=== PATIENT | female | born 1950 | race Caucasian/White ===

== ENCOUNTER 2018-08-26 11:35 | Inpatient (IN) | payer MEDICARE, OTHER ==
[~2018-08-26] VITALS: Ht 165.1 cm; Wt 88.3 kg
[~2018-08-26 11:35] MED LIST: ACET325T14; AMIT50TA PO; ASPI100P; CHRO1TAB6; CYCLOBENZAPR; DOCU50CA; EZET10TA18; GABA300C10; GLIP5TAB22; LEVO75CA2; NIAC1000; OXYC5CAP2; RANI150T23; SITA100T; TELM40TA
--- NOTE | 2018-08-26 11:53 | NUR ---
BIB [facility] FROM [place] WITH C/O SEIZURE LIKE ACTIVITY FOR ABOUT 45 SECONDS PRIOR TO DIALYSIS AND ROUGHLY WITH 18 MINUTES LEFT IN DIALYSIS. PT STATES SHE REMEMBERS SHAKING AND REMEMBERS THE SITUTION AFTERWARDS. PT STATES SHE DOES NOT FEEL WELL. PT AAOX3 AND A LITTLE DISCOMBOBULATED. UNSURE AT THIS TIME IF PT FINSHED DIALYSIS. VSS. PT ON CONT. PULSE OX AND BP. AWAITING EVAL AND ORDERS. WILL CONTINUE TO MONITOR.
[2018-08-26 12:38] LABS: BASOPHILS # (AUTO) 0.03 x10^3/uL (0-0.1); BASOPHILS % (AUTO) 0 % (0-1); EOSINOPHILS # (AUTO) 0.34 x10^3/uL (0-0.4); EOSINOPHILS % (AUTO) 5 % (1-7); LYMPHOCYTES # (AUTO) 1.17 x10^3/uL (1-3.4); LYMPHOCYTES % (AUTO) 18 % (22-44); MD NO; MEAN CORPUSCULAR HEMOGLOBIN 30.9 pg (27.0-34.8); MEAN CORPUSCULAR HGB CONC 34.4 g/dL (32.4-35.8); MEAN PLATELET VOLUME 7.3 fL (7.4-10.4); MONOCYTES # (AUTO) 0.47 x10^3/uL (0.2-0.8); MONOCYTES % (AUTO) 7 % (2-9); NEUTROPHILS # (AUTO) 4.66 x10^3/uL (1.8-6.8); NEUTROPHILS % (AUTO) 70 % (42-75); PLATELET COUNT 326 x10^3/uL (130-400); RED BLOOD COUNT 2.98 x10^6/uL (3.82-5.3); RED CELL DISTRIBUTION WIDTH 16.1 % (9.6-15.2)
--- NOTE | 2018-08-26 12:48 | NUR ---
PT BACK FROM CT.
[2018-08-26 12:52] LABS: ALBUMIN 3.3 g/dL (3.4-5.0); ANION GAP 9 mmol/L (5-15); CALCIUM 8.9 mg/dL (8.5-10.1); CHLORIDE 98 mmol/L (98-107)
--- NOTE | 2018-08-26 12:55 | NUR ---
EMT AT BEDSIDE COMPLETING EKG.
[2018-08-26 13:02] LABS: ALANINE AMINOTRANSFERASE 20 U/L (12-78); ALKALINE PHOSPHATASE 104 U/L (45-117); BILIRUBIN,TOTAL 0.3 mg/dL (0.2-1.0); CREATININE 5.93 mg/dL (0.55-1.02)
--- NOTE | 2018-08-26 13:28 | NUR ---
LUKAS TUCKER COMPLETED BY GLENNY AVALOS. URINE SAMPLE WALKED TO LAB.
[2018-08-26 13:42] LABS: CULTURE INDICATED? YES; MICROSCOPIC INDICATED
[2018-08-26] MEDS ORDERED: CEFTRIAXONE PMX 1GM/50ML 50 ML IV ONE (14:30)
--- NOTE | 2018-08-26 14:33 | NUR ---
ATTEMPTED US IV. UNSUCCESSFUL. ERMD AWARE. ANOTHER RN TO ATTEMPT.
[2018-08-26] MEDS ORDERED: CEFTRIAXONE PMX 1GM/50ML 50 ML ONE (14:56)
--- NOTE | 2018-08-26 15:04 | NUR ---
ROCEPHIN STARTED. ADMITTING COLUMNIST AT BEDSIDE.
[2018-08-26] MEDS ORDERED: CLOP75TA PO (15:25)
[2018-08-26] MEDS ORDERED: ASPI-515 PO (15:25)
[2018-08-26] MEDS ORDERED: INSU100C SQ-INSULIN (15:25)
[2018-08-26] MEDS ORDERED: SEVE800T8 PO (15:25)
[2018-08-26] MEDS ORDERED: METH5TAB4 PO (15:25)
[2018-08-26] MEDS ORDERED: STATIN (15:25)
[2018-08-26] MEDS ORDERED: LINA5TAB PO (15:25)
[2018-08-26] MEDS ORDERED: LEVO50TA5 PO (15:25)
[2018-08-26] MEDS ORDERED: ATORVASTATIN (15:25)
[2018-08-26] MEDS ORDERED: ONDANSETRON 2MG/ML, 2ML IVPush PRN (15:30)
[2018-08-26] MEDS: CEFTRIAXONE PMX 1GM/50ML 50 ML IV SCH ×2 (15:47→17:59)
[2018-08-26] MEDS: INSULIN LISPRO 100 UNITS/ML, PEN SQ-INSULIN SCH ×2 (16:00→21:00)
[2018-08-26 16:33] LABS: HEMOGLOBIN A1C 5.8 % (4.2-6.3)
--- NOTE | 2018-08-26 16:43 | NUR ---
REPORT TO GLENNY SEGURA. POC UPDATED WITH PT AND FAMILY.
[2018-08-26] MEDS: ONDANSETRON ODT 4 MG PO PRN (18:22)
[2018-08-26] MEDS: HEPARIN 5,000 UNITS/ML, 1ML SQ SCH (21:00)
[2018-08-26 21:43] VITALS: BP 129/62
[2018-08-27 01:02] VITALS: BP 94/56
[2018-08-27] MEDS: HEPARIN 5,000 UNITS/ML, 1ML SQ SCH ×3 (05:21→20:07)
[2018-08-27 06:08] LABS: BASOPHILS # (AUTO) 0.02 x10^3/uL (0-0.1); BASOPHILS % (AUTO) 0 % (0-1); EOSINOPHILS # (AUTO) 0.27 x10^3/uL (0-0.4); EOSINOPHILS % (AUTO) 4 % (1-7); LYMPHOCYTES # (AUTO) 2.07 x10^3/uL (1-3.4); LYMPHOCYTES % (AUTO) 29 % (22-44); MD NO; MEAN CORPUSCULAR HEMOGLOBIN 30.5 pg (27.0-34.8); MEAN CORPUSCULAR HGB CONC 33.9 g/dL (32.4-35.8); MONOCYTES % (AUTO) 8 % (2-9); NEUTROPHILS # (AUTO) 4.31 x10^3/uL (1.8-6.8); NEUTROPHILS % (AUTO) 59 % (42-75); PLATELET COUNT 337 x10^3/uL (130-400); RED BLOOD COUNT 3.07 x10^6/uL (3.82-5.3); RED CELL DISTRIBUTION WIDTH 15.8 % (9.6-15.2)
[2018-08-27 06:11] LABS: ALANINE AMINOTRANSFERASE 20 U/L (12-78); ALBUMIN 3.2 g/dL (3.4-5.0); ANION GAP 6 mmol/L (5-15); CALCIUM 8.5 mg/dL (8.5-10.1); CHLORIDE 97 mmol/L (98-107); CHOLESTEROL, TOTAL 88 mg/dL (140-239)
[2018-08-27 06:14] LABS: ALKALINE PHOSPHATASE 95 U/L (45-117); BILIRUBIN,TOTAL 0.3 mg/dL (0.2-1.0); CHOL/HDL RATIO 2.3; HDL CHOL % 44 % (28-40); HDL CHOLESTEROL (DIRECT) 39 mg/dL (40-60); LDL CHOLESTEROL,CALCULATED 13 mg/dL (54-169); LDL/HDL RATIO 0.3 (0.5-3.0); TOTAL PROTEIN 6.7 g/dL (6.4-8.2); TRIGLYCERIDES 181 mg/dL (50-200); VLDL CHOLESTEROL 36 mg/dL (0-25)
[2018-08-27] MEDS: INSULIN LISPRO 100 UNITS/ML, PEN SQ-INSULIN SCH ×6 (07:00→22:37)
[2018-08-27 07:48] LABS: CLOSTRIDIUM DIFFICILE ANTIGEN NEGATIVE; CLOSTRIDIUM DIFFICILE TOXIN NEGATIVE (Negative)
[2018-08-27] MEDS ORDERED: B CO1TAB14 PO (08:02)
[2018-08-27] MEDS ORDERED: ASCO500T5 PO (08:02)
[2018-08-27] MEDS ORDERED: METH5TAB12 PO (08:02)
[2018-08-27] MEDS ORDERED: GABA600T7 PO (08:02)
[2018-08-27] MEDS ORDERED: ROSU20TA2 PO (08:02)
[2018-08-27 08:04] VITALS: BP 119/66
[2018-08-27] MEDS ORDERED: ARANESP 100 MCG/ML **ESRD SQ SCH (12:00)
[2018-08-27] MEDS: ONDANSETRON ODT 4 MG PO PRN (14:25)
[2018-08-27 14:28] VITALS: BP 159/67
[2018-08-27] MEDS ORDERED: LOPERAMIDE 2 MG CAPSULE PO PRN (16:30)
[2018-08-27] MEDS: GABAPENTIN 100 MG CAPSULE PO SCH (20:07)
[2018-08-27] MEDS: ATORVASTATIN 40 MG TABLET PO SCH (20:07)
[2018-08-27 20:56] VITALS: BP 90/54
[2018-08-27] MEDS ORDERED: CEFTRIAXONE PMX 1GM/50ML 50 ML IV ONE (21:00)
[2018-08-28 00:51] VITALS: BP 93/53
[2018-08-28] MEDS: HEPARIN 5,000 UNITS/ML, 1ML SQ SCH ×3 (05:14→20:51)
[2018-08-28] MEDS: LEVOTHYROXINE 50 MCG TABLET PO SCH (05:15)
[2018-08-28 05:48] LABS: ALBUMIN 2.9 g/dL (3.4-5.0); ANION GAP 7 mmol/L (5-15); CALCIUM 8.9 mg/dL (8.5-10.1); CHLORIDE 97 mmol/L (98-107)
[2018-08-28 05:52] LABS: ALANINE AMINOTRANSFERASE 16 U/L (12-78); ALKALINE PHOSPHATASE 84 U/L (45-117); BILIRUBIN,TOTAL 0.3 mg/dL (0.2-1.0); CREATININE 6.33 mg/dL (0.55-1.02)
[2018-08-28] MEDS: INSULIN LISPRO 100 UNITS/ML, PEN SQ-INSULIN SCH ×5 (07:00→20:52)
[2018-08-28 08:01] VITALS: BP 95/56
[2018-08-28] MEDS: GABAPENTIN 100 MG CAPSULE PO SCH ×3 (08:47→20:51)
[2018-08-28] MEDS: CLOPIDOGREL 75 MG TABLET PO SCH (08:48)
[2018-08-28] MEDS ORDERED: ACETAMINOPHEN 325 MG TABLET PO PRN (10:00)
[2018-08-28] MEDS: SEVELAMER CARBONATE 800MG TAB PO SCH ×2 (13:56→16:10)
[2018-08-28 14:00] VITALS: BP 111/48
[2018-08-28] MEDS: ZONISAMIDE 50 MG CAPSULE PO SCH (16:09)
[2018-08-28] MEDS: CEFDINIR 300 MG CAPSULE PO SCH (16:10)
[2018-08-28] MEDS: ATORVASTATIN 40 MG TABLET PO SCH (20:51)
[2018-08-29 03:44] VITALS: BP 89/56
[2018-08-29] MEDS: CEFDINIR 300 MG CAPSULE PO SCH (05:27)
[2018-08-29] MEDS: HEPARIN 5,000 UNITS/ML, 1ML SQ SCH ×3 (05:28→21:01)
[2018-08-29] MEDS: LEVOTHYROXINE 50 MCG TABLET PO SCH (05:28)
[2018-08-29 05:32] LABS: CHLORIDE 99 mmol/L (98-107)
[2018-08-29 05:42] LABS: ALANINE AMINOTRANSFERASE 18 U/L (12-78); ALBUMIN 2.8 g/dL (3.4-5.0); ALKALINE PHOSPHATASE 78 U/L (45-117); ANION GAP 5 mmol/L (5-15); BILIRUBIN,TOTAL 0.5 mg/dL (0.2-1.0); CALCIUM 8.7 mg/dL (8.5-10.1); CREATININE 4.37 mg/dL (0.55-1.02); TOTAL PROTEIN 6.1 g/dL (6.4-8.2)
[2018-08-29 06:57] VITALS: BP 91/47
[2018-08-29] MEDS: INSULIN LISPRO 100 UNITS/ML, PEN SQ-INSULIN SCH ×4 (07:37→21:01)
[2018-08-29] MEDS: SEVELAMER CARBONATE 800MG TAB PO SCH ×4 (08:00→16:16)
[2018-08-29] MEDS: ZONISAMIDE 50 MG CAPSULE PO SCH (09:43)
[2018-08-29] MEDS: GABAPENTIN 100 MG CAPSULE PO SCH ×3 (09:43→21:01)
[2018-08-29] MEDS: CLOPIDOGREL 75 MG TABLET PO SCH (09:43)
[2018-08-29 15:05] VITALS: BP 117/77
[2018-08-29 19:27] VITALS: BP 94/54
[2018-08-29] MEDS: ATORVASTATIN 40 MG TABLET PO SCH (21:01)
[2018-08-30 04:07] VITALS: BP 110/66
[2018-08-30] MEDS: HEPARIN 5,000 UNITS/ML, 1ML SQ SCH ×3 (05:54→22:35)
[2018-08-30] MEDS: LEVOTHYROXINE 50 MCG TABLET PO SCH (05:54)
[2018-08-30] MEDS: INSULIN LISPRO 100 UNITS/ML, PEN SQ-INSULIN SCH ×4 (07:00→22:35)
[2018-08-30 08:00] VITALS: BP_SYST 110; BP_SYST 122; BP_DIAS 64; BP_DIAS 66
[2018-08-30] MEDS: CLOPIDOGREL 75 MG TABLET PO SCH (08:11)
[2018-08-30] MEDS: ZONISAMIDE 50 MG CAPSULE PO SCH (08:11)
[2018-08-30] MEDS: GABAPENTIN 100 MG CAPSULE PO SCH ×3 (08:11→22:34)
[2018-08-30] MEDS: SEVELAMER CARBONATE 800MG TAB PO SCH ×3 (08:11→17:59)
[2018-08-30 13:59] VITALS: BP 99/49
[2018-08-30] MEDS: CEFDINIR 300 MG CAPSULE PO SCH (18:01)
[2018-08-30 19:03] VITALS: BP 100/63
[2018-08-30] MEDS: ATORVASTATIN 40 MG TABLET PO SCH (22:34)
[2018-08-31 03:17] VITALS: BP 103/63
[2018-08-31] MEDS: HEPARIN 5,000 UNITS/ML, 1ML SQ SCH ×2 (05:59→13:00)
[2018-08-31] MEDS: LEVOTHYROXINE 50 MCG TABLET PO SCH (05:59)
[2018-08-31 06:17] LABS: ALBUMIN 2.8 g/dL (3.4-5.0); ANION GAP 5 mmol/L (5-15); CALCIUM 8.7 mg/dL (8.5-10.1); CHLORIDE 99 mmol/L (98-107)
[2018-08-31 06:21] LABS: ALANINE AMINOTRANSFERASE 18 U/L (12-78); ALKALINE PHOSPHATASE 83 U/L (45-117); BILIRUBIN,TOTAL 0.3 mg/dL (0.2-1.0); CREATININE 4.03 mg/dL (0.55-1.02); TOTAL PROTEIN 6.2 g/dL (6.4-8.2)
[2018-08-31] MEDS: INSULIN LISPRO 100 UNITS/ML, PEN SQ-INSULIN SCH ×2 (07:00→11:00)
[2018-08-31] MEDS ORDERED: LOPE2CAP PO (07:35)
[2018-08-31] MEDS ORDERED: SEVE800T8 PO (07:35)
[2018-08-31] MEDS ORDERED: CEFD300C37 PO (07:35)
[2018-08-31] MEDS ORDERED: ZONI50CA2 PO (07:35)
[2018-08-31] MEDS ORDERED: GABA-826 PO (07:35)
[2018-08-31 08:00] VITALS: BP 99/64
[2018-08-31] MEDS: GABAPENTIN 100 MG CAPSULE PO SCH ×2 (08:11→16:00)
[2018-08-31] MEDS: SEVELAMER CARBONATE 800MG TAB PO SCH ×2 (08:12→11:47)
[2018-08-31] MEDS: ZONISAMIDE 50 MG CAPSULE PO SCH (08:12)
[2018-08-31] MEDS: CLOPIDOGREL 75 MG TABLET PO SCH (08:13)
[2018-08-31 13:56] VITALS: BP 104/57
[2018-08-31] MEDS: CEFDINIR 300 MG CAPSULE PO SCH (16:12)
== END 2018-08-31 16:15 | DRG 70 ==
LOC: ED 12:51 → EDIP 15:14 → 4WST 17:11
PROVIDERS: ADMIT Hospitalist; ATTEND Hospitalist
PROC: 0T9B70Z Drainage of Bladder with Drainage Device, Via Natural or Artificial Opening (ICD-10-PCS; principal; 2018-08-26)
PROC: 5A1D70Z Performance of Urinary Filtration, Intermittent, Less than 6 Hours Per Day (ICD-10-PCS; 2018-08-26)
PROC: 5A1D70Z Performance of Urinary Filtration, Intermittent, Less than 6 Hours Per Day (ICD-10-PCS; 2018-08-28)
PROC: 5A1D70Z Performance of Urinary Filtration, Intermittent, Less than 6 Hours Per Day (ICD-10-PCS; 2018-08-30)
DX: G93.41 Metabolic encephalopathy (principal); N18.6 End stage renal disease; E46 Unspecified protein-calorie malnutrition; N39.0 Urinary tract infection, site not specified; I13.11 Hypertensive heart and chronic kidney disease without heart failure, with stage 5 chronic kidney disease, or end stage renal disease; I69.354 Hemiplegia and hemiparesis following cerebral infarction affecting left non-dominant side; G40.209 Localization-related (focal) (partial) symptomatic epilepsy and epileptic syndromes with complex partial seizures, not intractable, without status epilepticus; K52.9 Noninfective gastroenteritis and colitis, unspecified; D63.1 Anemia in chronic kidney disease; E11.22 Type 2 diabetes mellitus with diabetic chronic kidney disease; E78.5 Hyperlipidemia, unspecified; E87.6 Hypokalemia; I69.320 Aphasia following cerebral infarction; Z79.4 Long term (current) use of insulin; Z99.2 Dependence on renal dialysis; Z82.49 Family history of ischemic heart disease and other diseases of the circulatory system; Z90.710 Acquired absence of both cervix and uterus; Z79.899 Other long term (current) drug therapy; Z79.82 Long term (current) use of aspirin; Z68.32 Body mass index [BMI] 32.0-32.9, adult
CPT/HCPCS: 36415; 70450; 71045; 80053; 80061; 81001; 82962; 83036; 83735; 84100; 84443; 85025; 86705; 86706; 87086; 87324; 87340; 93005; 93306; 95819; 99285; G0378; J0696; J0882; J1644; J2405; Q0162; J1815